=== PATIENT | female | born 1990 ===

== ENCOUNTER 2017-08-02 20:38 | Emergency (ER) | payer BC ==
[2017-08-02 20:38] VITALS: BMI 28.3
[2017-08-02 20:50] VITALS: BP 112/84; PULSE 80; RESP 14; TEMP 99.4; O2SAT 98
--- NOTE | 2017-08-02 21:18 | C.PDOC ---
History Of Present Illness 27 yo female c/o left ankle pain occurring just prior to arrival. Pt notes she was walking down the stairs, tripped and twisted her ankle. Pain worse with ambulation. Denies change in sensation. No other injury. Time Seen by Provider: 08/02/17 20:55 Chief Complaint (Nursing): Lower Extremity Problem/Injury History Per: Patient History/Exam Limitations: no limitations Onset/Duration Of Symptoms: Hrs Current Symptoms Are (Timing): Still Present Past Medical History Vital Signs: Last Vital Signs Temp 99.4 F 08/02/17 20:48 Pulse 80 08/02/17 20:48 Resp 14 08/02/17 20:48 BP 112/84 08/02/17 20:48 Pulse Ox 98 08/02/17 21:19 - Medical History PMH: Asthma Denies: Chronic Kidney Disease Surgical History: Endoscopy Denies: Pacemaker Family History: States: Unknown Family Hx - Social History Hx Alcohol Use: No Hx Substance Use: No - Immunization History Hx Tetanus Toxoid Vaccination: No Review Of Systems Except As Marked, All Systems Reviewed And Found Negative. Physical Exam - Physical Exam Appears: Well, Non-toxic, No Acute Distress Skin: Normal Color, Warm, Dry Head: Atraumatic, Normacephalic Eye(s): bilateral: Normal Inspection, EOMI Nose: Normal Oral Mucosa: Moist Neck: Normal, Normal ROM, Supple Chest: Symmetrical Respiratory: No Accessory Muscle Use Back: Normal Inspection Extremity: No Normal ROM (decreased secondary to pain), Tenderness ((+) TTP and swelling to the lateral aspect of the ankle , no foot tenderness), No Calf Tenderness, Capillary Refill (<2 sec), Swelling Pulses: Left Dorsalis Pedis: Normal Neurological/Psych: Oriented x3, Normal Speech, Normal Motor, Normal Sensation ED Course And Treatment O2 Sat by Pulse Oximetry: 98 - Other Rad ANkle XR X-Ray: Interpreted by Me, Viewed By Me Interpretation: No fx or dislocation Progress Note: Stirrup splint applied by i&c tech. Crutches given. Instructed RICE and follow up with ortho in 1- 2 days. Disposition - Disposition Referrals: Itzel Reyes MD [Staff Provider] - Disposition: HOME/ ROUTINE Disposition Time: 21:18 Condition: STABLE Additional Instructions: Rest, ice and elevate the area. Follow up with bone doctor in 1-2 days. Return to ER if symptoms persist or worsen. Prescriptions: Naproxen [Naprosyn] 1 tab PO BID PRN #20 tab PRN Reason: Pain Instructions: Ankle Sprain Forms: [facility] [employer] [facility] ([place]) - Clinical Impression Clinical Impression: Ankle sprain
--- NOTE | 2017-08-03 08:56 | RAD ---
PROCEDURE: Left Ankle Radiographs. HISTORY: trauma COMPARISON: None FINDINGS: BONES: Normal. No fracture. JOINTS: Normal. No osteoarthritis. Ankle mortise maintained. Talar dome intact SOFT TISSUES: Lateral soft tissue swelling OTHER FINDINGS: None. IMPRESSION: No fracture or dislocation is suggested. Mild soft tissue swelling in the area of interest is noted.
== END 2017-08-02 21:59 | disposition home or self-care (01) ==
LOC: C.ER 20:38
DX: S93.402A Sprain of unspecified ligament of left ankle, initial encounter (principal); W10.9XXA Fall (on) (from) unspecified stairs and steps, initial encounter